=== PATIENT | female | born 1945 | race Caucasian/White ===

== ENCOUNTER 2018-06-26 19:48 | Emergency (ER) | payer MEDICARE, BC ==
[2018-06-26 20:20] VITALS: TEMP 98.3
[2018-06-26] MEDS ORDERED: ONDANSETRON 4 MG/2 ML VIAL IVP STA (21:09)
[2018-06-26] MEDS ORDERED: SODIUM CHLORIDE 0.9% 1,000 ML IV STA (21:09)
[2018-06-26] MEDS ORDERED: DICYCLOMINE 10 MG/ML 2 ML AMP IM STA (21:10)
[2018-06-26 22:01] LABS: Basophils % (A) 0 %; Eosinophils # (A) 0.1 k/uL (0-0.7); Eosinophils % (A) 1 %; HGB 15.7 gm/dL (11.4-16.0); Lymphocytes # (A) 0.5 k/uL (1.0-4.8); Lymphocytes % (A) 6 %; MCH 29.3 pg (25.0-35.0); MCHC 33.4 g/dL (31.0-37.0); MCV 87.6 fL (80.0-100.0); Mean Platelet Volume 6.4; Monocytes # (A) 0.5 k/uL (0-1.0); Monocytes % (A) 6 %; Neutrophils # (A) 7.2 k/uL (1.3-7.7); Neutrophils % (A) 87 %; Platelet Count 213 k/uL (150-450); RBC 5.37 m/uL (3.80-5.40); RDW 13.1 % (11.5-15.5); WBC 8.3 k/uL (3.8-10.6)
[2018-06-26 22:16] LABS: ALT 34 U/L (9-52); AST 25 U/L (14-36); Albumin 4.8 g/dL (3.5-5.0); Alkaline Phosphatase 74 U/L (38-126); Amylase 54 U/L (30-110); Anion Gap 11 mmol/L; Blood Urea Nitrogen 27 mg/dL (7-17); Calcium 10.2 mg/dL (8.4-10.2); Carbon Dioxide 28 mmol/L (22-30); Chloride 101 mmol/L (98-107); Glucose 116 mg/dL (74-99); Lipase 123 U/L (23-300); Potassium 3.2 mmol/L (3.5-5.1); Sodium 140 mmol/L (137-145); Total Bilirubin 0.6 mg/dL (0.2-1.3); Total Protein 7.8 g/dL (6.3-8.2)
[2018-06-26 23:23] LABS: Appearance,Urine Turbid (Clear); Bilirubin,Urine Negative (Negative); Blood,Urine Negative (Negative); Color,Urine Yellow; Glucose,Urine (UA) Negative (Negative); Ketones,Urine 3+ (Negative); Leukocyte Esterase,Urine Trace (Negative); Mucus,Urine Many /hpf; Nitrite,Urine Negative (Negative); Protein,Urine 1+ (Negative); RBC,Urine 6 /hpf (0-5); Specific Gravity,Urine 1.023 (1.001-1.035); Squamous Epithelial Cell,Urine 2 /hpf (0-4); WBC,Urine 11 /hpf (0-5)
[2018-06-27] MEDS ORDERED: ONDANSETRON 4 MG ODT STARTER PACK 2 TAB BTL PO STA (00:02)
--- NOTE | 2018-06-27 00:02 | ED ---
Nausea/Vomiting/Diarrhea HPI - General Chief complaint: Nausea/Vomiting/Diarrhea Stated complaint: Vomiting Time Seen by Provider: 06/26/18 20:34 Source: patient Mode of arrival: ambulatory Limitations: no limitations - History of Present Illness Initial comments: 72-year-old female patient presents to the emergency department today for evaluation of vomiting and diarrhea. Patient states she's had symptoms for the last 3 days. States she's been unable to eat or drink. States she's had multiple episodes of each daily. She denies any hematemesis, hematochezia, or melena. She denies any fever or chills with this. States she is having some intermittent generalized abdominal cramping but denies any localized abdominal pain. She denies any sick contacts or recent travel. Denies any recent use of antibiotics. Patient denies any recent rash, shortness breath, chest pain, back pain, numbness, tingling, dizziness, weakness, hematuria, dysuria, urinary urgency, urinary frequency, headache, visual changes, or any other complaints. - Related Data Home Medications Medication Instructions Recorded Confirmed Acetaminophen Tab [Tylenol Tab] 1,000 mg PO HS 06/26/18 06/26/18 Acetaminophen Tab [Tylenol Tab] 500 mg PO DAILY 06/26/18 06/26/18 Esomeprazole Magnesium 20 mg PO DAILY 06/26/18 06/26/18 Hydrochlorothiazide [Hydrodiuril] 25 mg PO DAILY 06/26/18 06/26/18 Loratadine [Claritin] 10 mg PO DAILY 06/26/18 06/26/18 Previous Rx's Medication Instructions Recorded Ondansetron [Zofran ODT] 4 mg PO Q8HR PRN #10 tab 06/27/18 Allergies Allergy/AdvReac Type Severity Reaction Status Date / Time codeine AdvReac Nausea & Verified 06/26/18 21:35 Vomiting Review of Systems ROS Statement: Those systems with pertinent positive or pertinent negative responses have been documented in the HPI. ROS Other: All systems not noted in ROS Statement are negative. Past Medical History Additional Past Medical History / Comment(s): sciata, paralyzed vocal cord History of Any Multi-Drug Resistant Organisms: None Reported Past Surgical History: Cholecystectomy, Hysterectomy Additional Past Surgical History / Comment(s): hernia repair, tummy tuck Past Psychological History: No Psychological Hx Reported Smoking Status: Never smoker Past Alcohol Use History: Occasional Past Drug Use History: None Reported General Exam Limitations: no limitations General appearance: alert, in no apparent distress, other (This is a well- developed, well-nourished elderly female patient in no acute distress. Vital signs upon presentation are temperature 98.2F, pulse 99, respirations 20, blood pressure 137/78, pulse ox 97% on room air.) ENT exam: Present: normal exam, normal oropharynx, mucous membranes moist Respiratory exam: Present: normal lung sounds bilaterally. Absent: respiratory distress, wheezes, rales, rhonchi, stridor Cardiovascular Exam: Present: regular rate, normal rhythm, normal heart sounds. Absent: systolic murmur, diastolic murmur, rubs, gallop, clicks GI/Abdominal exam: Present: soft, normal bowel sounds. Absent: distended, tenderness, guarding, rebound, rigid Neurological exam: Present: alert, oriented X3, CN II-XII intact Psychiatric exam: Present: normal affect, normal mood Skin exam: Present: warm, dry, intact, normal color. Absent: rash Course Vital Signs 06/26/18 06/27/18 20:16 00:19 Temperature 98.3 F Pulse Rate 99 96 Respiratory 20 18 Rate Blood Pressure 137/78 129/80 O2 Sat by Pulse 97 98 Oximetry Medical Decision Making - Medical Decision Making 72-year-old female patient presented to the emergency department today for evaluation of vomiting and diarrhea. Physical examination is relatively unremarkable. Abdomen is soft and nontender. Labs reviewed and are unremarkable. Patient symptoms are consistent with viral gastroenteritis, normal virus is prevalent at this time in this area. She is instructed to start with clear liquid diet and advance as tolerated. She will be given a prescription for Zofran. She is instructed to follow-up with her primary care physician for recheck in 1-2 days. Return parameters are discussed in detail. She verbalizes understanding and agrees with this plan. - Lab Data Result diagrams: 06/26/18 21:42 06/26/18 21:42 Lab Results 06/26/18 06/26/18 06/26/18 Range/Units 21:42 21:42 23:00 WBC 8.3 (3.8-10.6) k/uL RBC 5.37 (3.80-5.40) m/uL Hgb 15.7 (11.4-16.0) gm/dL Hct 47.0 H (34.0-46.0) % MCV 87.6 (80.0-100.0) fL MCH 29.3 (25.0-35.0) pg MCHC 33.4 (31.0-37.0) g/dL RDW 13.1 (11.5-15.5) % Plt Count 213 (150-450) k/uL Neutrophils % 87 % Lymphocytes % 6 % Monocytes % 6 % Eosinophils % 1 % Basophils % 0 % Neutrophils # 7.2 (1.3-7.7) k/uL Lymphocytes # 0.5 L (1.0-4.8) k/uL Monocytes # 0.5 (0-1.0) k/uL Eosinophils # 0.1 (0-0.7) k/uL Basophils # 0.0 (0-0.2) k/uL Sodium 140 (137-145) mmol/L Potassium 3.2 L (3.5-5.1) mmol/L Chloride 101 (98-107) mmol/L Carbon Dioxide 28 (22-30) mmol/L Anion Gap 11 mmol/L BUN 27 H (7-17) mg/dL Creatinine 0.65 (0.52-1.04) mg/dL Est GFR (CKD-EPI)AfAm >90 (>60 ml/min/1.73 sqM) Est GFR (CKD-EPI)NonAf >90 (>60 ml/min/1.73 sqM) Glucose 116 H (74-99) mg/dL Calcium 10.2 (8.4-10.2) mg/dL Total Bilirubin 0.6 (0.2-1.3) mg/dL AST 25 (14-36) U/L ALT 34 (9-52) U/L Alkaline Phosphatase 74 (38-126) U/L Total Protein 7.8 (6.3-8.2) g/dL Albumin 4.8 (3.5-5.0) g/dL Amylase 54 (30-110) U/L Lipase 123 (23-300) U/L Urine Color Yellow Urine Appearance Turbid H (Clear) Urine pH 6.0 (5.0-8.0) Ur Specific [place] 1.023 (1.001-1.035) Urine Protein 1+ H (Negative) Urine Glucose (UA) Negative (Negative) Urine Ketones 3+ H (Negative) Urine Blood Negative (Negative) Urine Nitrite Negative (Negative) Urine Bilirubin Negative (Negative) Urine Urobilinogen 2.0 (<2.0) mg/dL Ur Leukocyte Esterase Trace H (Negative) Urine RBC 6 H (0-5) /hpf Urine WBC 11 H (0-5) /hpf Ur Squamous Epith Cells 2 (0-4) /hpf Urine Mucus Many H (None) /hpf Disposition Clinical Impression: Viral gastroenteritis Disposition: HOME SELF-CARE Condition: Good Instructions: Gastroenteritis (ED) Additional Instructions: Start with clear liquid diet and advance as tolerated. Follow-up through primary care physician for recheck in 1-2 days. Consider using over-the- counter antidiarrheal medication. Return to the emergency department immediately for any new, worsening, or concerning symptoms. Prescriptions: Ondansetron [Zofran ODT] 4 mg PO Q8HR PRN #10 tab PRN Reason: Nausea Is patient prescribed a controlled substance at d/c from ED?: No Referrals: Nonstaff,Physician [Primary Care Provider] - 1-2 days Time of Disposition: 00:02
[2018-06-27 00:20] VITALS: BP 129/80; PULSE 96; RESP 18
== END 2018-06-27 00:19 | disposition home or self-care (01) ==
LOC: EC 19:48
DX: A08.4 Viral intestinal infection, unspecified (principal); Z88.5 Allergy status to narcotic agent; Z79.891 Long term (current) use of opiate analgesic; Z79.899 Other long term (current) drug therapy; Z87.39 Personal history of other diseases of the musculoskeletal system and connective tissue; Z90.49 Acquired absence of other specified parts of digestive tract
CPT/HCPCS: 36415; 80053; 82150; 83690; 85025; 81001; 99284; 96374; 96361 ×2; 96372; J0500; J2405

== ENCOUNTER → 2023-12-31 | Outpatient (CLI) | payer MEDICARE, BC ==
[2023-12-31 17:26] LABS: BUN/Creat Ratio 16.71 Ratio (12.00-20.00); Blood Urea Nitrogen 11.7 mg/dL (9.0-27.0); Calcium 9.1 mg/dL (8.7-10.3); Carbon Dioxide 24.9 mmol/L (21.6-31.8); Chloride 107 mmol/L (96-109); Glucose 92 mg/dL (70-110); Potassium 4.1 mmol/L (3.5-5.5); Sodium 141 mmol/L (135-145)
== END | disposition home or self-care (01) ==
LOC: LABWHC1 07:49
PROVIDERS: ATTEND Internal Medicine
DX: I42.0 Dilated cardiomyopathy (principal)
CPT/HCPCS: 36415; 80048

== ENCOUNTER → 2024-01-07 | Outpatient (CLI) | payer MEDICARE, BC ==
[2024-01-07 17:34] LABS: BUN/Creat Ratio 19.29 Ratio (12.00-20.00); Blood Urea Nitrogen 13.5 mg/dL (9.0-27.0); Carbon Dioxide 24.7 mmol/L (21.6-31.8); Chloride 104 mmol/L (96-109); Glucose 90 mg/dL (70-110); Potassium 4.7 mmol/L (3.5-5.5); Sodium 140 mmol/L (135-145)
[2024-01-07 17:35] LABS: Calcium 9.5 mg/dL (8.7-10.3)
== END | disposition home or self-care (01) ==
LOC: LABWHC1 08:06
PROVIDERS: ATTEND Internal Medicine
DX: I42.0 Dilated cardiomyopathy (principal)
CPT/HCPCS: 36415; 80048